=== PATIENT | female | born 1980 | race Two or more races ===

== ENCOUNTER 2022-03-03 20:20 | Inpatient (IN) ==
[2022-03-03 21:37] LABS: Appearance Urine Clear (Clear); Bilirubin Urine Negative (Negative); Blood Urine Negative (Negative); Color Urine Yellow; Glucose Urine UA Negative (Negative); Ketones Urine Negative (Negative); Leukocyte Esterase Urine Negative (Negative); Nitrite Urine Negative (Negative); Protein Urine Negative (Negative); Specific Gravity Urine 1.007 (1.000-1.030); Urobilinogen Urine Negative (Negative)
[2022-03-03 21:37] LABS: Basophils # (auto) 0.03 K/uL (0-0.2); Basophils % (auto) 0.3 %; Eosinophils # (auto) 0.05 K/uL (0-0.5); Eosinophils % (auto) 0.5 %; Hematocrit (blood only) 42.1 % (37-47); Hemoglobin 14.2 g/dL (12.0-16.0); Immature Granulocytes # (auto) 0.03 K/uL (0.00-0.02); Immature Granulocytes % (auto) 0.3 %; Lymphocytes # (auto) 2.43 K/uL (1.2-3.4); Lymphocytes % (auto) 23.9 %; Mean Corpuscular Hemoglobin 30.9 pg (25-34); Mean Corpuscular Hgb Conc 33.7 g/dL (32-36); Mean Corpuscular Volume 91.7 fL (80-100); Mean Platelet Volume 9.9 fL (7.4-10.4); Monocytes # (auto) 0.86 K/uL (0.11-0.59); Monocytes % (auto) 8.5 %; Neutrophils # (auto) 6.75 K/uL (1.4-6.5); Neutrophils % (auto) 66.5 %; Platelet Count 245 K/uL (130-400); RDW Coefficient of Variation 12.7 % (11.5-14.5); RDW Standard Deviation 42.9 fL (36.4-46.3); Red Blood Count 4.59 M/uL (4.2-5.4); White Blood Count 10.15 K/uL (4.8-10.8)
[2022-03-03 21:58] LABS: Pregnancy Test, Serum Negative (Negative)
[2022-03-03 22:04] LABS: Albumin Globulin Ratio 1.7 (0.9-2); Albumin Level 4.8 gm/dl (3.4-5.0); BUN Creatinine Ratio 22.4 (10-20); Bilirubin,Total 0.4 mg/dl (0.2-1.0); Calcium 9.5 mg/dl (8.5-10.1); Creatinine Clr Calc Pharmacy 105.1 ml/min; Est GFR (African American) 112.1 ml/min; Est GFR (Non-African American) 96.8 ml/min; Globulin 2.9 gm/dl (2.5-4.0); Potassium 3.6 mmol/L (3.5-5.1); Total Protein 7.7 gm/dl (6.0-8.3)
[2022-03-03 22:09] LABS: Amphetamines+Metham, Urine Pos (Neg); Barbiturates, Urine Neg (Neg); Benzodiazepine, Urine Neg (Neg); Cocaine, Urine Neg (Neg); MDMA (Ecstacy), Urine Neg (Neg); Methadone, Urine Neg (Neg); Opiate, Urine Neg (Neg); Phencyclidine, Urine Neg (Neg)
[2022-03-03 22:25] LABS: Acetaminophen < 3 ug/ml (10-30); Salicylate < 3.0 mg/dl (3.0-30)
[2022-03-03] MEDS ORDERED: SERTRALINE HCL 50 MG TABLET PO ONE (23:33)
[2022-03-03] MEDS ORDERED: QUEtiapine FUMARATE 25 MG TABLET PO STA (23:33)
[2022-03-04] MEDS ORDERED: RACEPINEPHRINE 2.25% NEBU SOLN 0.5 ML VIAL ONE (00:18)
[2022-03-04] MEDS ORDERED: ACETAMINOPHEN 500 MG TAB PO STA (00:41)
--- NOTE | 2022-03-04 00:59 | Emergency Department Note ---
Impression & Plan Suicidal ideation, Thought disorder ED Provider Note INFORMANT: Patient and police ED PROVIDER(S): Vicente Stafford MD CHIEF COMPLAINT: Mental health evaluation PLAN: Disposition: Admitted to 3 S. Condition: Good Outpatient prescription management: none Referral: None MEDICAL DECISION MAKING: Patient presented to the emergency department by police on a 302. She had sent text messages regarding hanging herself. On interview she was very tangential. She was making references to the [employer], war, sabianist, prior abuse. Her speech was pressured. She exhibited some signs of paranoia as well. She was cooperative. She did request her evening medications and these were given. Her blood work including toxicology panel was unremarkable except forMarijuana and methamphetamine. Given the behavior, thought issues, and overall state of the patient's mental wellbeing further management in the hospital is necessary. The patient does not want to be in the hospital. A 302 was signed in order to facilitate psychiatric evaluation. Patient was evaluated by 3 S. and was admit raquel for further management. Triage Nursing notes reviewed and agree them. Vital Signs: reviewed and remarkable for no significant abnormalities Differential diagnosis: Thought disorder, mood disorder, infection, hypoglycemia, electrolyte abnormali ties, cardiac sources, intracerebral event, toxicologic, trauma, neurologic, as well as other pathologies. Diagnostics interpreted by me: ECG: none Cardiac Monitoring: none Imaging studies: Deferred HPI: The patient is a 41 year old female who presents to the Emergency Room with complaints of health evaluation. The patient reportedly sent a text message a bout hanging herself with a rope to her significant other. Police were summoned. Patient was evaluated by [facility] on scene. She confirmed sending the message. They could not find the rope. They brought the patient to the emergency department for evaluation for mental health concerns. This started today. The patient also notes the following associated symptoms, chronic leg, jaw and back pains. Patient states she does take medication for PTSD and sleep. Patient states that she was in her apartment listening to the [place] trials and translating them from [place]ian into Ecuadorean. She was also listening to [employer] correspondence from President X[employer] and was very excited about what she was hearing. She states that she texted about hanging but that was because she was translating about children that were killed in the war. Patient also notes that she was translating the Bible. Current pain is rated as 9/10. Pt denies LOC, headache, fevers, chills, diaphoresis, visual changes, neck pain, chest pain, breathing difficulties, nausea, vomiting, abdominal pain, urinary symptoms, numbness, weakness, lymphadenopathy, rash, or other complaints. ROS: See above HPI for pertinent positives & negatives. A total of 10 systems reviewed and were otherwise negative. PAST MEDICAL HISTORY:See Below , ADD, bruxism, PTSD PAST SURGICAL HISTORY:See Below, FAMILY HISTORY:See Below SOCIAL HISTORY:See Below, smoker HOME MEDICATIONS:See Below ALLERGIES:See Below VITALS:See Below PHYSICAL EXAMINATION: GENERAL: Awake, alert, anxious-appearing, in no distress HENT: Normocephalic, atraumatic. Oropharynx unremarkable. Jaw bruxism EYES: Normal conjunctiva. Sclera non-icteric. NECK: Inspection normal. Non-tender. Supple. No nuchal rigidity. FROM. No masses. RESPIRATORY: Clear to auscultation. No wheezes. No rales. Normal respiratory effort. CARDIAC: Normal rate. Normal rhythm. No murmurs. No rubs. Extremities warm and well perfused. Pulses equal. No JVD. GI: Soft, non-distended. No tenderness to palpation. No rebound or guarding. No masses. RECTAL: Deferred. MUSCULOSKELETAL: Atraumatic. Chest examination reveals no tenderness. The back is symmetrical on inspection without obvious abnormality. There is no CVA tenderness to palpation. No joint edema. LOWER EXTREMITIES: Calves are equal size bilaterally and non-tender. No edema. No discoloration. NEURO: Normal sensorium. No sensory or motor deficits noted. SKIN: No rash or jaundice noted. PSYCH: Patient is very tangential but cooperative. Delusional about being in contact with the [employer]. Patient discussing translation of the Bible. Admitted to sending text about hanging herself however is evasive on answering details. References the [place] trials regarding the reason for sending the text. Patient exhibiting poor insight and judgment. Vicente Stafford MD Past Med/Surg History Medical History ADD (attention deficit disorder) Anemia Anxiety Bruxism Hypothyroidism IBS (irritable bowel syndrome) Medical marijuana use PTSD (post-traumatic stress disorder) Sleep apnea CPAP Surgical History History of x 3 History of hip surgery Rt History of hysterectomy with unilateral oophorectomy History of nasal surgery History of ovarian cystectomy Family History Father Diabetes Mother Diabetes Other No family history of adverse response to anesthesia Social History Smoking Status: Current every day smoker Tobacco Type: Cigarettes Cigarettes Per Day: 3-4 cig per day; Second Hand Exposure: No; Hx Alcohol Use: No Hx Substance Use: Yes Last Used Substance Other:: last night Substance Use Type Other:: medical marijuana Preferred Language: Ecuadorean Communication Ability: Effective Ethanol Quality Leader Required: No Beliefs That Will Affect Care: None Current Living Situation: Significant Other Feels Safe at Home: Yes Assistive Devices: Contacts Allergies Allergies Allergy/AdvReac Type Severity Reaction Status Date / Time No Known Allergies Allergy Verified 12/30/20 13:09 Home Meds Home Medications Medication Instructions Recorded Confirmed sertraline 50 mg tablet (Zoloft) 50 mg PO HS 09/11/20 03/03/22 quetiapine 50 mg tablet (Seroquel) 50 mg PO HS 03/03/22 03/03/22 Results & Data (ED) Vital Signs Vital Signs - 24 hr 03/03/22 20:26 03/04/22 00:57 Temperature 37.2 C Temperature Source Oral Pulse Rate 88 Pulse Rate [Radial] 77 Pulse Rhythm [Radial] Regular Respiratory Rate 16 18 Respiratory Effort / Characteristics Non-Labored Respiratory Depth Normal Blood Pressure 130/99 Blood Pressure [Right Arm] 119/82 Blood Pressure Mean 109 Blood Pressure Mean [Right Arm] 94 Pulse Oximetry 99 98 Oxygen Delivery Method Room Air Room Air Sepsis Recent Fever Within 48 Hours No Sepsis New/Unexplained Change in Mental Status No Sepsis Action Taken by Nursing No Action Required Laboratory Data Result diagrams: 03/03/22 21:25 03/03/22 21:25 Lab Results 03/03/22 03/03/22 03/03/22 Range/Units 21:25 21:25 21:25 WBC 10.15 (4.8-10.8) K/uL RBC 4.59 (4.2-5.4) M/uL Hgb 14.2 (12.0-16.0) g/dL Hct 42.1 (37-47) % MCV 91.7 (80-100) fL MCH 30.9 (25-34) pg MCHC 33.7 (32-36) g/dL RDW Std Deviation 42.9 (36.4-46.3) fL RDW Coeff of Marco 12.7 (11.5-14.5) % Plt Count 245 (130-400) K/uL MPV 9.9 (7.4-10.4) fL Immature Gran % (Auto) 0.3 % Neut % (Auto) 66.5 % Lymph % (Auto) 23.9 % [place] % (Auto) 8.5 % Eos % (Auto) 0.5 % Baso % (Auto) 0.3 % Neut # (Auto) 6.75 H (1.4-6.5) K/uL Lymph # (Auto) 2.43 (1.2-3.4) K/uL [place] # (Auto) 0.86 H (0.11-0.59) K/uL Eos # (Auto) 0.05 (0-0.5) K/uL Baso # (Auto) 0.03 (0-0.2) K/uL Immature Gran # (Auto) 0.03 H (0.00-0.02) K/uL Sodium 138 (136-145) mmol/L Potassium 3.6 (3.5-5.1) mmol/L Chloride 105 (98-107) mmol/L Carbon Dioxide 25 (21-32) mmol/L Anion Gap 8 (3-11) BUN 17 (6-23) mg/dl Creatinine 0.76 (0.6-1.2) mg/dl Est Cr Clr Drug Dosing 105.1 ml/min Est GFR ( Amer) 112.1 ml/min Est GFR (Non-Af Amer) 96.8 ml/min BUN/Creatinine Ratio 22.4 H (10-20) Glucose 93 (70-99(Fasting)) mg/dl Calcium 9.5 (8.5-10.1) mg/dl Total Bilirubin 0.4 (0.2-1.0) mg/dl AST 22 (13-39) U/L ALT 22 (7-52) U/L Alkaline Phosphatase 70 (34-104) U/L Total Protein 7.7 (6.0-8.3) gm/dl Albumin 4.8 (3.4-5.0) gm/dl Globulin 2.9 (2.5-4.0) gm/dl Albumin/Globulin Ratio 1.7 (0.9-2) TSH 5.062 H (0.300-4.500) uIu/ml HCG, Qual (Negative) Urine Color Urine Appearance (Clear) Urine pH (4.5-7.5) Ur Specific Alexis (1.000-1.030) Urine Protein (Negative) Urine Glucose (UA) (Negative) Urine Ketones (Negative) Urine Blood (Negative) Urine Nitrite (Negative) Urine Bilirubin (Negative) Urine Urobilinogen (Negative) Ur Leukocyte Esterase (Negative) Salicylates (3.0-30) mg/dl Urine Opiates Screen (Neg) Ur Methadone, Qual (Neg) Acetaminophen (10-30) ug/ml Urine Barbiturates (Neg) Ur Phencyclidine (PCP) (Neg) U Amphetamin/Meth Scrn (Neg) MDMA (Ecstasy) Screen (Neg) U Benzodiazepines Scrn (Neg) Ur Cocaine Metabolite (Neg) U Marijuana (THC) Screen (Neg) Ethyl Alcohol mg/dL (<10.0) mg/dl SARS-CoV-2, RNA, NAAT (NEGATIVE) 03/03/22 03/03/22 03/03/22 Range/Units 21:25 21:25 21:25 WBC (4.8-10.8) K/uL RBC (4.2-5.4) M/uL Hgb (12.0-16.0) g/dL Hct (37-47) % MCV (80-100) fL MCH (25-34) pg MCHC (32-36) g/dL RDW Std Deviation (36.4-46.3) fL RDW Coeff of Marco (11.5-14.5) % Plt Count (130-400) K/uL MPV (7.4-10.4) fL Immature Gran % (Auto) % Neut % (Auto) % Lymph % (Auto) % [place] % (Auto) % Eos % (Auto) % Baso % (Auto) % Neut # (Auto) (1.4-6.5) K/uL Lymph # (Auto) (1.2-3.4) K/uL [place] # (Auto) (0.11-0.59) K/uL Eos # (Auto) (0-0.5) K/uL Baso # (Auto) (0-0.2) K/uL Immature Gran # (Auto) (0.00-0.02) K/uL Sodium (136-145) mmol/L Potassium (3.5-5.1) mmol/L Chloride (98-107) mmol/L Carbon Dioxide (21-32) mmol/L Anion Gap (3-11) BUN (6-23) mg/dl Creatinine (0.6-1.2) mg/dl Est Cr Clr Drug Dosing ml/min Est GFR ( Amer) ml/min Est GFR (Non-Af Amer) ml/min BUN/Creatinine Ratio (10-20) Glucose (70-99(Fasting)) mg/dl Calcium (8.5-10.1) mg/dl Total Bilirubin (0.2-1.0) mg/dl AST (13-39) U/L ALT (7-52) U/L Alkaline Phosphatase (34-104) U/L Total Protein (6.0-8.3) gm/dl Albumin (3.4-5.0) gm/dl Globulin (2.5-4.0) gm/dl Albumin/Globulin Ratio (0.9-2) TSH (0.300-4.500) uIu/ml HCG, Qual Negative (Negative) Urine Color Urine Appearance (Clear) Urine pH (4.5-7.5) Ur Specific Alexis (1.000-1.030) Urine Protein (Negative) Urine Glucose (UA) (Negative) Urine Ketones (Negative) Urine Blood (Negative) Urine Nitrite (Negative) Urine Bilirubin (Negative) Urine Urobilinogen (Negative) Ur Leukocyte Esterase (Negative) Salicylates < 3.0 L (3.0-30) mg/dl Urine Opiates Screen (Neg) Ur Methadone, Qual (Neg) Acetaminophen < 3 L (10-30) ug/ml Urine Barbiturates (Neg) Ur Phencyclidine (PCP) (Neg) U Amphetamin/Meth Scrn (Neg) MDMA (Ecstasy) Screen (Neg) U Benzodiazepines Scrn (Neg) Ur Cocaine Metabolite (Neg) U Marijuana (THC) Screen (Neg) Ethyl Alcohol mg/dL < 10.0 (<10.0) mg/dl SARS-CoV-2, RNA, NAAT (NEGATIVE) 03/03/22 03/03/22 03/03/22 Range/Units 22:24 Unknown Unknown WBC (4.8-10.8) K/uL RBC (4.2-5.4) M/uL Hgb (12.0-16.0) g/dL Hct (37-47) % MCV (80-100) fL MCH (25-34) pg MCHC (32-36) g/dL RDW Std Deviation (36.4-46.3) fL RDW Coeff of Marco (11.5-14.5) % Plt Count (130-400) K/uL MPV (7.4-10.4) fL Immature Gran % (Auto) % Neut % (Auto) % Lymph % (Auto) % [place] % (Auto) % Eos % (Auto) % Baso % (Auto) % Neut # (Auto) (1.4-6.5) K/uL Lymph # (Auto) (1.2-3.4) K/uL [place] # (Auto) (0.11-0.59) K/uL Eos # (Auto) (0-0.5) K/uL Baso # (Auto) (0-0.2) K/uL Immature Gran # (Auto) (0.00-0.02) K/uL Sodium (136-145) mmol/L Potassium (3.5-5.1) mmol/L Chloride (98-107) mmol/L Carbon Dioxide (21-32) mmol/L Anion Gap (3-11) BUN (6-23) mg/dl Creatinine (0.6-1.2) mg/dl Est Cr Clr Drug Dosing ml/min Est GFR ( Amer) ml/min Est GFR (Non-Af Amer) ml/min BUN/Creatinine Ratio (10-20) Glucose (70-99(Fasting)) mg/dl Calcium (8.5-10.1) mg/dl Total Bilirubin (0.2-1.0) mg/dl AST (13-39) U/L ALT (7-52) U/L Alkaline Phosphatase (34-104) U/L Total Protein (6.0-8.3) gm/dl Albumin (3.4-5.0) gm/dl Globulin (2.5-4.0) gm/dl Albumin/Globulin Ratio (0.9-2) TSH (0.300-4.500) uIu/ml HCG, Qual (Negative) Urine Color Yellow Urine Appearance Clear (Clear) Urine pH 5.0 (4.5-7.5) Ur Specific Alexis 1.007 (1.000-1.030) Urine Protein Negative (Negative) Urine Glucose (UA) Negative (Negative) Urine Ketones Negative (Negative) Urine Blood Negative (Negative) Urine Nitrite Negative (Negative) Urine Bilirubin Negative (Negative) Urine Urobilinogen Negative (Negative) Ur Leukocyte Esterase Negative (Negative) Salicylates (3.0-30) mg/dl Urine Opiates Screen Neg (Neg) Ur Methadone, Qual Neg (Neg) Acetaminophen (10-30) ug/ml Urine Barbiturates Neg (Neg) Ur Phencyclidine (PCP) Neg (Neg) U Amphetamin/Meth Scrn Pos H (Neg) MDMA (Ecstasy) Screen Neg (Neg) U Benzodiazepines Scrn Neg (Neg) Ur Cocaine Metabolite Neg (Neg) U Marijuana (THC) Screen Pos H (Neg) Ethyl Alcohol mg/dL (<10.0) mg/dl SARS-CoV-2, RNA, NAAT NEGATIVE (NEGATIVE) Administered Medications Discontinued Medications Acetaminophen (Acetaminophen 500 Mg Tab) 1,000 mg PO NOW STA Stop: 03/04/22 00:42 Last Admin: 03/04/22 00:56 Dose: 1,000 mg Documented by: [id number] Epinephrine (Racepinephrine 2.25% Nebu Soln 0.5 Ml Vial) Confirm Administered Dose 0.5 ml .ROUTE .STK-MED ONE Stop: 03/04/22 00:19 Last Admin: 03/04/22 00:44 Dose: Not Given Documented by: [id number] Quetiapine Fumarate (Quetiapine Fumarate 25 Mg Tablet) 50 mg PO NOW STA Stop: 03/03/22 23:34 Last Admin: 03/04/22 00:12 Dose: 50 mg Documented by: [id number] Sertraline HCl (Sertraline Hcl 50 Mg Tablet) 50 mg PO NOW ONE Stop: 03/03/22 23:34 Last Admin: 03/04/22 00:12 Dose: 50 mg Documented by: [id number] Discharge Plan Visit Data Chief Complaint: Mental Health Evaluation Stated Complaint: MENTAL HEALTH EVAL ED Provider: Vicente Stafford Discharge Problem: Suicidal ideation, Thought disorder
[2022-03-04] MEDS ORDERED: SODIUM CHLORIDE 0.65% NA SOLN 45 ML (OCEAN) PRN (02:51)
[2022-03-04] MEDS ORDERED: ALUMINUM/MAGNESIUM SUSP 30 ML UDC PO PRN (02:51)
[2022-03-04] MEDS ORDERED: MAGNESIUM HYDROXIDE SUSP 30 ML UDC PO PRN (02:51)
[2022-03-04] MEDS ORDERED: ACETAMINOPHEN 325 MG TAB PO PRN (02:51)
[2022-03-04] MEDS ORDERED: hydrOXYzine HCl 25 MG TAB PO PRN ×2 (02:51)
[2022-03-04] MEDS ORDERED: haloperidoL 5 MG TAB PO PRN (02:51)
[2022-03-04] MEDS ORDERED: BISMUTH SUBSALICYLATE LIQD 236 ML PO PRN (02:51)
[2022-03-04] MEDS ORDERED: LORazepam 1 MG TAB PO PRN (02:53)
[2022-03-04] MEDS ORDERED: AMPHETAMINE ASP/SULF/DEXTRAMPH ER 20 MG CAP PO SCH (09:30)
[2022-03-04] MEDS ORDERED: DESTROY THIS MEDICATION ONE (11:37)
--- NOTE | 2022-03-04 12:28 | History & Physical ---
Date of Service March 04, 2022 Impression / Recommendations Impression 41 yo female with history of [facility], and TBI (no specific details) with disorganized behavior, delusions, paranoia, possible suicidal statements in the setting of unknown medical MJ useage and is prescribed Adderall XR. 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 Her underlying PTSD seems to be triggered by recent events in news and some of the manic behaviors reported last night may have partially been miscommunication (hearing deficit, TBI). She is aware of concerns that Adderall XR can worsen underlying psychosis. (1) Mood disorder as late effect of traumatic brain injury: (2) Post traumatic stress disorder (PTSD): The patient was [facility] inpatient mental health unit) on q15 min checks (behavioral with suicide precautions) for safety. The patient will participate in group, recreational, and milieu therapies and will be offered additional individual and family sessions as clinically appropriate. An emergency 303 hearing was scheduled to facilitate transfer to [facility] for additional treatment. She did receive Adderall XR today as symptoms seem primarily mood driven rather than primary thought disorder and reportedly has significant benefit for her TBI. She is in supervised setting but obviously needs to be monitored carefully in the context of possible hanh. She does not want to continue Seroquel and would like to discuss other options with treating psychiatrist at the [facility]. She understood the rationale for the 303 hearing and her preference is for a [facility] facility. Inventory Assets Strengths: service connection, cooperative with care Needs: transfer to [facility], also reports she is awaiting rehab facility for hip issues Risk Factors Assessment : No Mental Health Diagnoses: Yes Substance Use Disorders: No Previous Attempt: No Previous Psychiatric Hospitalization: Yes Protective Factors Assessment : No Responsible for Young Children: No (children with exhusband) Good Rapport with Provider: Yes Psychiatric History Identifying Data ADRIANA [place] is a 41-year-old F who currently lives in [facility], has a history of service ([facility]) , and was admitted on 03/04/22 01:57 on a 302 involuntary commitment for SI and disorganized behavior. She remains tangential and a poor historian. Chief Complaint "They all just busted in and I didn't know what was happening". History of Present Illness Adriana was apparently admitted to the [facility] for inpatient psych a year ago for mood changes related to TBI and/or PTSD. She reports ongoing stressors of pain and poor concentration for which she is prescribed Adderall XR per the PDMP database. She reports she has a hearing deficit and misinterpreted what was happening when the police came to do a safety check. She states she hasn't been sleeping well given "world war III" going on and reports being triggered by events in [facility], so much so that she spends voluminous amount of time on the computer translating things from Bengali to Serbian (referred to the Sem[employer] trial, the Bible). She presented as quite disorganized and expansive and also claimed she was listening to communication from the [place] and in witness protection. She reports feeling paranoid that her ex "set this all up" as denies she made suicidal statements. She is restless, reports sweating; she denies use of substances that would precipitate withdrawal. ETOH use is unknown. She also uses medical MJ for pain and will not elaborate on amount or THC levels of products she is using. She has asked repeatedly for her morning dose of Adderall. She reports wearing hearing aides and walking with a walker at baseline falling a fall on the ice this winter that exacerbated her underlying TBI. 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 302 commitment was completed in the ED and CM confirmed that she could not be transferred to a [facility] facility at that time due to requirements of various counties. She received 1 dose of Zoloft as she had a bottle with her but no evidence prescribed for several months in [facility] and she denied taking it. She received 1 dose of Seroquel 50 mg hs but "I want something else." Past Psychiatric History Previous Psych History: PTSD--[facility] Current Psychiatric Diagnosis: psychotic disorder (hanh?) Outpatient Services: [facility] Previous [facility], records not currently available Past Medication Trials: unable to confirm Past Head Trauma/Neuro History History of Concussion/Seizure: Yes Allergies Allergy/AdvReac Type Severity Reaction Status Date / Time No Known Allergies Allergy Verified 12/30/20 13:09 Home Medications Medication Instructions Recorded Confirmed Type sertraline 50 mg tablet (Zoloft) 50 mg PO HS 09/11/20 03/03/22 History quetiapine 50 mg tablet (Seroquel) 50 mg PO HS 03/03/22 03/03/22 History Family History Family History of: Doesn't Know Alcohol History Hx of Alcohol Use Over the Past 12 Months: Yes (4 beers over 4 days a month ago; 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) AUDIT Total Score: 1 Smoking Use Have You Smoked or Used Tobacco Products in the Last 30 Days: No tobacco type: cigarettes Smoking Status: Unknown if ever smoked Substance History Hx of Prescription Med Misuse Over the Past 12 Months: No Hx of Over the Counter Med Misuse Over the Past 12 Months: No Hx of Inhalent Misuse Over the Past 12 Months: No Hx of Organic Substance Use Over the Past 12 Months: Yes (medical marijuana cream 1x daily for pain) Hx of Illegal Substances/Street Drug Use Over Past 12 Months: No Problems as a Result of Past Substance Use: None Identified Personal History Beliefs That Will Affect Care: None Patient History Medical History (Updated 03/04/22 @ 12:46 by Emma Ricketts MD) ADD (attention deficit disorder) Anemia Anxiety Bruxism Hypothyroidism IBS (irritable bowel syndrome) Medical marijuana use Sleep apnea CPAP Surgical History History of x 3 History of hip surgery Rt History of hysterectomy with unilateral oophorectomy History of nasal surgery History of ovarian cystectomy Family History Father Diabetes Mother Diabetes Other No family history of adverse response to anesthesia Social History Smoking Status: Unknown if ever smoked Tobacco Type: Cigarettes Cigarettes Per Day: 3-4 cig per day; Second Hand Exposure: No; Hx Alcohol Use: No Hx Substance Use: Yes Last Used Substance Other:: last night Substance Use Type Other:: medical marijuana Preferred Language: Serbian Communication Ability: Effective Hoist Worker Required: No Beliefs That Will Affect Care: None Current Living Situation: Significant Other Feels Safe at Home: Yes Assistive Devices: Contacts, Hearing Aid - Bilateral and Walker Assistive Devices Comment: pt reports using hearing aids and a walker for walking long distances Review of Systems Review of Systems: All systems reviewed & are unremarkable except as noted in HPI & below Physical Exam Psychiatric: Orientation: alert and oriented x 3 Apperance: appropriately dressed and appropriately groomed Eye Contact: good eye contact Motor Behavior: + abnormal motor movements (appears to have facial assymmetry/bruxism with possible dyskinetic movement) Speech: normal rate/rhythm/volume of s peech Affect: + anxious affect Mood: + anxious mood and + irritable mood Thought Process: + tangential thought process Thought Content: + paranoid and + delusions (grandeur) Suicidal Thoughts: denies suicidal thoughts Homicidal Thoughts: denies homicidal thoughts Hallucinations: no auditory hallucinations and no visual hallucinations Cognition: language grossly intact; + attention not intact Estimated Intelligence: consistent with education level Insight: + limited insight Judgement: + limited judgement Vital Signs (Past 24 Hours): Last Vital Signs Temp 36.9 C 03/04/22 06:40 Pulse 84 03/04/22 06:41 Resp 16 03/04/22 06:40 BP 96/72 L 03/04/22 06:41 Pulse Ox 98 03/04/22 00:57 Exam Statement: A physical exam was performed in the ED by Dr. Cervantes for the purposes of medical clearance. I accept that physical as correct and adequate for the purposes of the inpatient physical exam. Results & Data ([facility]) Laboratory Results Laboratory Results - last 24 hr 03/03/22 03/03/22 03/03/22 21:25 21:25 21:25 WBC 10.15 RBC 4.59 Hgb 14.2 Hct 42.1 MCV 91.7 MCH 30.9 MCHC 33.7 RDW Std Deviation 42.9 RDW Coeff of Marco 12.7 Plt Count 245 MPV 9.9 Immature Gran % (Auto) 0.3 Neut % (Auto) 66.5 Lymph % (Auto) 23.9 [place] % (Auto) 8.5 Eos % (Auto) 0.5 Baso % (Auto) 0.3 Neut # (Auto) 6.75 H Lymph # (Auto) 2.43 [place] # (Auto) 0.86 H Eos # (Auto) 0.05 Baso # (Auto) 0.03 Immature Gran # (Auto) 0.03 H Sodium 138 Potassium 3.6 Chloride 105 Carbon Dioxide 25 Anion Gap 8 BUN 17 Creatinine 0.76 Est Cr Clr Drug Dosing 105.1 Est GFR ( Amer) 112.1 Est GFR (Non-Af Amer) 96.8 BUN/Creatinine Ratio 22.4 H Glucose 93 Calcium 9.5 Total Bilirubin 0.4 AST 22 ALT 22 Alkaline Phosphatase 70 Total Protein 7.7 Albumin 4.8 Globulin 2.9 Albumin/Globulin Ratio 1.7 TSH 5.062 H HCG, Qual Urine Color Urine Appearance Urine pH Ur Specific [place] Urine Protein Urine Glucose (UA) Urine Ketones Urine Blood Urine Nitrite Urine Bilirubin Urine Urobilinogen Ur Leukocyte Esterase Salicylates Urine Opiates Screen Ur Methadone, Qual Acetaminophen Urine Barbiturates Ur Phencyclidine (PCP) U Amphetamines Confirm U Amphetamin/Meth Scrn U Methamphetamin Confrm MDMA (Ecstasy) Screen U Benzodiazepines Scrn Ur Cocaine Metabolite U Marijuana (THC) Screen U Marijuana THC Carboxy Drug Screen Comment Ethyl Alcohol mg/dL SARS-CoV-2, RNA, NAAT 03/03/22 03/03/22 03/03/22 21:25 21:25 21:25 WBC RBC Hgb Hct MCV MCH MCHC RDW Std Deviation RDW Coeff of Marco Plt Count MPV Immature Gran % (Auto) Neut % (Auto) Lymph % (Auto) [place] % (Auto) Eos % (Auto) Baso % (Auto) Neut # (Auto) Lymph # (Auto) [place] # (Auto) Eos # (Auto) Baso # (Auto) Immature Gran # (Auto) Sodium Potassium Chloride Carbon Dioxide Anion Gap BUN Creatinine Est Cr Clr Drug Dosing Est GFR ( Amer) Est GFR (Non-Af Amer) BUN/Creatinine Ratio Glucose Calcium Total Bilirubin AST ALT Alkaline Phosphatase Total Protein Albumin Globulin Albumin/Globulin Ratio TSH HCG, Qual Negative Urine Color Urine Appearance Urine pH Ur Specific [place] Urine Protein Urine Glucose (UA) Urine Ketones Urine Blood Urine Nitrite Urine Bilirubin Urine Urobilinogen Ur Leukocyte Esterase Salicylates < 3.0 L Urine Opiates Screen Ur Methadone, Qual Acetaminophen < 3 L Urine Barbiturates Ur Phencyclidine (PCP) U Amphetamines Confirm U Amphetamin/Meth Scrn U Methamphetamin Confrm MDMA (Ecstasy) Screen U Benzodiazepines Scrn Ur Cocaine Metabolite U Marijuana (THC) Screen U Marijuana THC Carboxy Drug Screen Comment Ethyl Alcohol mg/dL < 10.0 SARS-CoV-2, RNA, NAAT 03/03/22 03/03/22 03/03/22 22:24 Unknown Unknown WBC RBC Hgb Hct MCV MCH MCHC RDW Std Deviation RDW Coeff of Marco Plt Count MPV Immature Gran % (Auto) Neut % (Auto) Lymph % (Auto) [place] % (Auto) Eos % (Auto) Baso % (Auto) Neut # (Auto) Lymph # (Auto) [place] # (Auto) Eos # (Auto) Baso # (Auto) Immature Gran # (Auto) Sodium Potassium Chloride Carbon Dioxide Anion Gap BUN Creatinine Est Cr Clr Drug Dosing Est GFR ( Amer) Est GFR (Non-Af Amer) BUN/Creatinine Ratio Glucose Calcium Total Bilirubin AST ALT Alkaline Phosphatase Total Protein Albumin Globulin Albumin/Globulin Ratio TSH HCG, Qual Urine Color Yellow Urine Appearance Clear Urine pH 5.0 Ur Specific [place] 1.007 Urine Protein Negative Urine Glucose (UA) Negative Urine Ketones Negative Urine Blood Negative Urine Nitrite Negative Urine Bilirubin Negative Urine Urobilinogen Negative Ur Leukocyte Esterase Negative Salicylates Urine Opiates Screen Neg Ur Methadone, Qual Neg Acetaminophen Urine Barbiturates Neg Ur Phencyclidine (PCP) Neg U Amphetamines Confirm U Amphetamin/Meth Scrn Pos H U Methamphetamin Confrm MDMA (Ecstasy) Screen Neg U Benzodiazepines Scrn Neg Ur Cocaine Metabolite Neg U Marijuana (THC) Screen Pos H U Marijuana THC Carboxy Drug Screen Comment Ethyl Alcohol mg/dL SARS-CoV-2, RNA, NAAT NEGATIVE 03/03/22 Unknown WBC RBC Hgb Hct MCV MCH MCHC RDW Std Deviation RDW Coeff of Marco Plt Count MPV Immature Gran % (Auto) Neut % (Auto) Lymph % (Auto) [place] % (Auto) Eos % (Auto) Baso % (Auto) Neut # (Auto) Lymph # (Auto) [place] # (Auto) Eos # (Auto) Baso # (Auto) Immature Gran # (Auto) Sodium Potassium Chloride Carbon Dioxide Anion Gap BUN Creatinine Est Cr Clr Drug Dosing Est GFR ( Amer) Est GFR (Non-Af Amer) BUN/Creatinine Ratio Glucose Calcium Total Bilirubin AST ALT Alkaline Phosphatase Total Protein Albumin Globulin Albumin/Globulin Ratio TSH HCG, Qual Urine Color Urine Appearance Urine pH Ur Specific [place] Urine Protein Urine Glucose (UA) Urine Ketones Urine Blood Urine Nitrite Urine Bilirubin Urine Urobilinogen Ur Leukocyte Esterase Salicylates Urine Opiates Screen Ur Methadone, Qual Acetaminophen Urine Barbiturates Ur Phencyclidine (PCP) U Amphetamines Confirm Pending U Amphetamin/Meth Scrn U Methamphetamin Confrm Pending MDMA (Ecstasy) Screen U Benzodiazepines Scrn Ur Cocaine Metabolite U Marijuana (THC) Screen U Marijuana THC Carboxy Pending Drug Screen Comment Pending Ethyl Alcohol mg/dL SARS-CoV-2, RNA, NAAT Current Inpatient Medications Current Inpatient Medications: Current Inpatient Medications Acetaminophen (Acetaminophen 325 Mg Tab) 650 mg PO Q4H PRN PRN Reason: Headache or Minor Fever Stop: 04/03/22 02:50 Last Admin: 03/04/22 10:26 Dose: 650 mg Documented by: Al Hydrox/Mg Hydrox/Simethicone (Aluminum/Magnesium Susp 30 Ml Udc) 30 ml PO Q4H PRN PRN Reason: GI Upset Stop: 04/03/22 02:50 Amphetamine/Dextroamphetamine (Amphetamine Asp/Sulf/Dextramph Er 20 Mg Cap) 20 mg PO QAM NAKUL Stop: 03/18/22 09:29 Last Admin: 03/04/22 10:24 Dose: 20 mg Documented by: Bismuth Subsalicylate (Bismuth Subsalicylate Liqd 236 Ml) 15 ml PO PRN PRN PRN Reason: Loose Stool Stop: 04/03/22 02:50 Haloperidol (Haloperidol 5 Mg Tab) 5 mg PO Q6 PRN PRN Reason: Anxiety/Agitation Stop: 04/03/22 02:50 Hydroxyzine HCl (Hydroxyzine Hcl 25 Mg Tab) 50 mg PO HSZ PRN PRN Reason: Insomnia Stop: 04/03/22 02:50 Hydroxyzine HCl (Hydroxyzine Hcl 25 Mg Tab) 25 mg PO Q4H PRN PRN Reason: Anxiety Stop: 04/03/22 02:50 Lorazepam (Lorazepam 1 Mg Tab) 1 mg PO Q6 PRN PRN Reason: Anxiety Stop: 04/03/22 02:52 Magnesium Hydroxide (Magnesium Hydroxide Susp 30 Ml Udc) 30 ml PO DAILY PRN PRN Reason: Constipation Stop: 04/03/22 02:50 Sodium Chloride (Sodium Chloride 0.65% Na Soln 45 Ml ([place])) 1 - 2 sprays NA PRN PRN PRN Reason: Nasal Dryness/Congestion Stop: 04/03/22 02:50
--- NOTE | 2022-03-04 14:51 | Discharge Summary ---
Date of Service March 04, 2022 History of Present Illness [facility] for mood changes related to TBI and/or PTSD. She reports ongoing stressors of pain and poor concentration for which she is prescribed Adderall XR per the PDMP database. She reports she has a hearing deficit and misinterpreted what was happening when the police came to do a safety check. She states she hasn't been sleeping well given "world war III" going on and reports being triggered by events in [place], so much so that she spends voluminous amount of time on the computer translating things from [place] to [place]ian (referred to the alaTest trial, the Bible). She presented as quite disorganized and expansive and also claimed she was listening to communication from the [place] and in witness protection. She reports feeling paranoid that her ex "set this all up" as denies she made suicidal statements. She is restless, reports sweating; she denies use of substances that would precipitate withdrawal. ETOH use is unknown. She also uses medical MJ for pain and will not elaborate on amount or THC levels of products she is using. She has asked repeatedly for her morning dose of Adderall. She reports wearing hearing aides and walking with a walker at baseline falling a fall on the ice this winter that exacerbated her underlying TBI. 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 302 commitment was completed in the ED and CM confirmed that she could not be transferred to a [facility] facility at that time due to requirements of various counties. She received 1 dose of Zoloft as she had a bottle with her but no evidence prescribed for several months in [facility] and she denied taking it. She received 1 dose of Seroquel 50 mg hs but "I want something else." Physical Exam Psychiatric See admission H&P. Vital Signs (Past 24 Hours) Last Vital Signs Temp 36.9 C 03/04/22 06:40 Pulse 84 03/04/22 06:41 Resp 16 03/04/22 06:40 BP 96/72 L 03/04/22 06:41 Pulse Ox 98 03/04/22 00:57 Principal Diagnosis mood disorder Psychiatric Data See daily stay summary. In short, safety was maintained pending a 303 hearing and acceptance/transfer to a [facility] facility. The patient stated she did not want to take Seroquel any more. I am recommending her Adderall XR be held until evaluating by [place] psychiatrist. Her medical condition was reviewed with [facility] and agreed stable for acceptance/transport. Accepting psychiatrist is Dr. Jessica Mora. Day of Discharge Assessment see H&P. Her medical condition was reviewed with MK De Anda and agreed s table for acceptance/transport. Accepting psychiatrist is Dr. Jessica Mora. Transition of Care Transition Of Care Record: was reviewed with the patient Advance Directives Advance Directives Information Provided: Yes Advance Directives: No Mental Health Advance Directive: No Advance Directives on File: No Living Will: No Power of Cardroom Drawing Runner: No Advance Directives Reason:: Declines as Mental Health Visit. Risk Factors Assessment : No Mental Health Diagnoses: Yes Substance Use Disorders: No Previous Attempt: No Previous Psychiatric Hospitalization: Yes Protective Factors Assessment : No Responsible for Young Children: No (children with exhusband) Good Rapport with Provider: Yes Tobacco Cessation at Discharge Tobacco Cessation Medication Prescribed at Discharge: Not Applicable/Non-Smoker Total Time Total Time Spent: Greater Than 30 Minutes Total Time Includes: Examination of the patient, Discharge Planning and Medication Reconciliation Discharge Data Lab Results 03/03/22 03/03/22 03/03/22 21:25 21:25 21:25 WBC 10.15 RBC 4.59 Hgb 14.2 Hct 42.1 MCV 91.7 MCH 30.9 MCHC 33.7 RDW Std Deviation 42.9 RDW Coeff of Marco 12.7 Plt Count 245 MPV 9.9 Immature Gran % (Auto) 0.3 Neut % (Auto) 66.5 Lymph % (Auto) 23.9 [place] % (Auto) 8.5 Eos % (Auto) 0.5 Baso % (Auto) 0.3 Neut # (Auto) 6.75 H Lymph # (Auto) 2.43 [place] # (Auto) 0.86 H Eos # (Auto) 0.05 Baso # (Auto) 0.03 Immature Gran # (Auto) 0.03 H Sodium 138 Potassium 3.6 Chloride 105 Carbon Dioxide 25 Anion Gap 8 BUN 17 Creatinine 0.76 Est Cr Clr Drug Dosing 105.1 Est GFR ( Amer) 112.1 Est GFR (Non-Af Amer) 96.8 BUN/Creatinine Ratio 22.4 H Glucose 93 Calcium 9.5 Total Bilirubin 0.4 AST 22 ALT 22 Alkaline Phosphatase 70 Total Protein 7.7 Albumin 4.8 Globulin 2.9 Albumin/Globulin Ratio 1.7 TSH 5.062 H HCG, Qual Urine Color Urine Appearance Urine pH Ur Specific [place] Urine Protein Urine Glucose (UA) Urine Ketones Urine Blood Urine Nitrite Urine Bilirubin Urine Urobilinogen Ur Leukocyte Esterase Salicylates Urine Opiates Screen Ur Methadone, Qual Acetaminophen Urine Barbiturates Ur Phencyclidine (PCP) U Amphetamin/Meth Scrn MDMA (Ecstasy) Screen U Benzodiazepines Scrn Ur Cocaine Metabolite U Marijuana (THC) Screen Ethyl Alcohol mg/dL SARS-CoV-2, RNA, NAAT 03/03/22 03/03/22 03/03/22 21:25 21:25 21:25 WBC RBC Hgb Hct MCV MCH MCHC RDW Std Deviation RDW Coeff of Marco Plt Count MPV Immature Gran % (Auto) Neut % (Auto) Lymph % (Auto) [place] % (Auto) Eos % (Auto) Baso % (Auto) Neut # (Auto) Lymph # (Auto) [place] # (Auto) Eos # (Auto) Baso # (Auto) Immature Gran # (Auto) Sodium Potassium Chloride Carbon Dioxide Anion Gap BUN Creatinine Est Cr Clr Drug Dosing Est GFR ( Amer) Est GFR (Non-Af Amer) BUN/Creatinine Ratio Glucose Calcium Total Bilirubin AST ALT Alkaline Phosphatase Total Protein Albumin Globulin Albumin/Globulin Ratio TSH HCG, Qual Negative Urine Color Urine Appearance Urine pH Ur Specific [place] Urine Protein Urine Glucose (UA) Urine Ketones Urine Blood Urine Nitrite Urine Bilirubin Urine Urobilinogen Ur Leukocyte Esterase Salicylates < 3.0 L Urine Opiates Screen Ur Methadone, Qual Acetaminophen < 3 L Urine Barbiturates Ur Phencyclidine (PCP) U Amphetamin/Meth Scrn MDMA (Ecstasy) Screen U Benzodiazepines Scrn Ur Cocaine Metabolite U Marijuana (THC) Screen Ethyl Alcohol mg/dL < 10.0 SARS-CoV-2, RNA, NAAT 03/03/22 03/03/22 03/03/22 22:24 Unknown Unknown WBC RBC Hgb Hct MCV MCH MCHC RDW Std Deviation RDW Coeff of Marco Plt Count MPV Immature Gran % (Auto) Neut % (Auto) Lymph % (Auto) [place] % (Auto) Eos % (Auto) Baso % (Auto) Neut # (Auto) Lymph # (Auto) [place] # (Auto) Eos # (Auto) Baso # (Auto) Immature Gran # (Auto) Sodium Potassium Chloride Carbon Dioxide Anion Gap BUN Creatinine Est Cr Clr Drug Dosing Est GFR ( Amer) Est GFR (Non-Af Amer) BUN/Creatinine Ratio Glucose Calcium Total Bilirubin AST ALT Alkaline Phosphatase Total Protein Albumin Globulin Albumin/Globulin Ratio TSH HCG, Qual Urine Color Yellow Urine Appearance Clear Urine pH 5.0 Ur Specific [place] 1.007 Urine Protein Negative Urine Glucose (UA) Negative Urine Ketones Negative Urine Blood Negative Urine Nitrite Negative Urine Bilirubin Negative Urine Urobilinogen Negative Ur Leukocyte Esterase Negative Salicylates Urine Opiates Screen Neg Ur Methadone, Qual Neg Acetaminophen Urine Barbiturates Neg Ur Phencyclidine (PCP) Neg U Amphetamin/Meth Scrn Pos H MDMA (Ecstasy) Screen Neg U Benzodiazepines Scrn Neg Ur Cocaine Metabolite Neg U Marijuana (THC) Screen Pos H Ethyl Alcohol mg/dL SARS-CoV-2, RNA, NAAT NEGATIVE Hospital Course (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 Mental Health & Subst Abuse Tx Therapist Name of Therapist: pt denies having a current therapist Banbury Machine Operator Name of Banbury Machine Operator: pt denies having a current case finisher Post Discharge Appointments Primary Care Physician Name Of Family Doctor: pt unsure of PCP Smoking Cessation Counseling Tobacco Cessation Medication Prescribed at Discharge: Not Applicable/Non-Smoker Discharge Plan Discharge Items Patient Disposition: Transfer [place] [facility] Reason For Visit: PSYCHOTIC DISORDER Discharge Diagnosis: mood disorder Activity: Resume your previous activity Non-emergency contact: Primary Care Provider, Psychiatrist, Therapist and Dial Equipment Engineer Call non-emergency contact if: you have any medication questions and your symptoms worsen Follow-up/Referrals: Bautista Olivares MD [Primary Care Provider] - Diet: Regular Addtl Attending Provider Instructions: SPECIAL CARE INSTRUCTIONS: 1. Follow through with your scheduled aftercare appointments. If unable to keep an appointment, please call to reschedule. 2. Take your medication only as prescribed. Medication should not be changed or stopped without the approval of your doctor. In the event of worsening symptoms or concerns about side effects, contact your doctor immediately. 3. Utilize new healthy coping skills, anger management skills, and stress management skills learned during your hospitalization. Journal feelings and process them with a support person. Identify stressors or situations that may result in relapse, deterioration or inappropriate behaviors and develop a plan to deal with those issues. 4. If your coping skills are ineffective and you are in crisis, contact your outpatient providers for direction. If unable to reach your providers, please call the [facility] CRISIS LINE AT , go to the [facility] walk-in center at [address], [address], [place], or go to the closest Emergency Room. 5. Avoid alcohol and un-prescribed drugs. 6. You have been provided with the Mental Health Advance Directives Pamphlet for your review. 7. Your condition is stable for discharge to outpatient level of care, but recovery is an ongoing process. Ifthoughts to harm yourself or others return, follow the safety plan developed during your stay. Planning for a safe return home includes securing weapons. Our treatment team recommends weaponsbe removed from the home until your outpatient provider reassesses your progress. In rare cases where the items themselvescannot be removed, guns and ammunitionshould be secured separatelyand keys stored by a reliable personoutside of the home. If you were admitted on an involuntary commitment, the police or other legal authorities may be involved in this process. AFTERCARE APPOINTMENTS: * Please call your insurance company prior to your scheduled appointment to confirm your aftercare providers are covered. Take your insurance information to your a ointments. WHO TO CALL AND WHEN: Medical Emergencies: For questions or emergencies related to your hospital stay, please contact the Inpatient Behavioral Health Unit at [phone]. A tie loader is on-call 14/06 for the Behavioral Health Unit for emergencies At any time you feel your situation is an emergency, you may also call 911 immediately. Pending Studies at Discharge: No Stand-Alone Forms: My [facility] Skilled Items Patient informed of condition?: Yes DNR: No Discharge Level of Care: Other Communicable Disease: No Discharge Prognosis: Stable Lines: None Urinary Catheter: No Medications and DC Order Prescriptions: Discontinued quetiapine [Seroquel] 50 mg tablet 50 mg PO HS RF: 0 Discharge Orders: Discharge Order (Routine); Ordered 03/04/22 Ordered By: Emma Ricketts Admission Data Admit Date/Time: 03/04/22 01:57 Attending Provider: Emma Ricketts Admit Provider: Emma Ricketts Primary Care Provider: Bautista Olivares Coding Level of Care Code 35381 D/C day mgmt > 30 min Diagnoses Mood disorder as late effect of traumatic brain injury F06.30; S06.9X9S Post traumatic stress disorder (PTSD) F43.10 Medical marijuana use Z79.899
[2022-03-06 08:52] LABS: Amphetamine Urine, Confirm 4350 ng/mL (<250); Marijuana Quant, GCMS Urine 104 ng/mL (<5); Methamphetamine, Ur Confirm NEGATIVE ng/mL (<250)
== END 2022-03-04 16:26 | DRG 884 ==
LOC: ED 20:20 → 3S 03-04 01:57
DX: F17.210 Nicotine dependence, cigarettes, uncomplicated; F41.9 Anxiety disorder, unspecified; F43.10 Post-traumatic stress disorder, unspecified; F06.30 Mood disorder due to known physiological condition, unspecified; F90.9 Attention-deficit hyperactivity disorder, unspecified type; E03.9 Hypothyroidism, unspecified; G47.63 Sleep related bruxism